=== PATIENT | female | born 1990 | race Caucasian/White ===

== ENCOUNTER 2023-08-05 12:00 | Outpatient (CLI) | payer OTHER | END 2023-08-05 12:15 | disposition home or self-care (01) | LOC: LAB.N 12:00 | PROVIDERS: ATTEND Physician Assistant Medical | DX: J02.9 Acute pharyngitis, unspecified (principal) | CPT/HCPCS: 87070 ==

== ENCOUNTER 2024-02-11 07:36 | Observation (INO) ==
[2024-02-11 08:29] LABS: BILIRUBIN,URINE NEGATIVE (NEGATIVE); GLUCOSE, URINE (UA) NEGATIVE (NEGATIVE); KETONES,URINE (UA) 40 mg/dL (NEGATIVE); LEUKOCYTE ESTERASE, URINE SMALL (NEGATIVE); NITRITE,URINE NEGATIVE (NEGATIVE); OCCULT BLOOD,URINE TRACE-INTA (NEGATIVE); PROTEIN,URINE NEGATIVE (NEGATIVE); UROBILINOGEN,URINE 0.2 (NORMAL) E.U./dL (NORMAL)
[2024-02-11 08:30] LABS: BASOPHILS # (AUTO) 0.1 10^3/uL (0.0-0.1); BASOPHILS % (AUTO) 0.5 %; EOSINOPHILS # (AUTO) 0.2 10^3/uL (0.0-0.7); EOSINOPHILS % (AUTO) 1.5 %; HCT - HEMATOCRIT 40.4 % (37.0-47.0); HGB - HEMOGLOBIN 13.5 g/dL (12.0-16.0); LYMPHOCYTES # (AUTO) 2.4 10^3/uL (1.5-3.5); LYMPHOCYTES % (AUTO) 17.9 %; MEAN CORPUSCULAR HEMOGLOBIN 30.1 pg (27.0-31.0); MEAN CORPUSCULAR HGB CONC 33.4 g/dL (32.0-36.0); MEAN PLATELET VOLUME 10.3 fL (7.9-10.8); MONOCYTES % (AUTO) 7.2 %; NEUTROPHILS # (AUTO) 9.7 10^3/uL (1.5-6.6); NEUTROPHILS % (AUTO) 72.7 %; PLT - PLATELET COUNT 354 10^3/uL (130-450); RED BLOOD COUNT 4.49 10^6/uL (4.20-5.40); RED CELL DISTRIBUTION WIDTH 12.5 % (12.0-15.0); WHITE BLOOD COUNT 13.3 x10^3/uL (4.8-10.8)
[2024-02-11 08:34] LABS: CLARITY,URINE HAZY (CLEAR); HCG UR QUAL NEGATIVE
--- NOTE | 2024-02-11 08:36 | ED Physician Documentation ---
History of Present Illness Stated complaint Stated Complaint: ABD PX, BACK PX Chief complaint Chief Complaint: Abd Pain History obtained from History obtained from: Patient History of Present Illness Pain level max: 8 Pain level now: 8 Additonal information Additional information: Patient is a 33-year-old female who presents to the emergency department with right upper quadrant/epigastric pain ongoing x 2 days. Nothing makes it better or worse. Has not had similar symptoms previously. No fevers. No chills. No cough or congestion. Denies any possibility of . No diarrhea or constipation. Review of Systems Constitutional Denies: Fever or Chills Ears, nose, mouth, and throat Denies: Neck pain Genitourinary Denies: Painful urination, Urinary frequency or Urinary urgency Musculoskeletal Denies: Back pain or Neck pain Psychiatric Reports: Anxiety Meds/Allgy Home Medications Ambulatory Orders Medication Instructions Recorded Confirmed cetirizine 10 mg tablet 10 mg PO QDAY PRN 01/24/24 01/24/24 fluticasone propionate 50 2 spray intranasal QDAY 01/24/24 01/24/24 mcg/actuation nasal spray,suspension loratadine 10 mg tablet 10 mg PO QDAY 01/24/24 01/24/24 omeprazole 20 mg capsule,delayed 20 mg PO QDAY 01/24/24 01/24/24 release escitalopram oxalate 10 mg tablet 20 mg (2 x 10 mg) PO QDAY 90 days 01/25/24 01/25/24 #180 tabs Allergies Allergies Allergy/AdvReac Type Severity Reaction Status Date / Time No Known Drug Allergies Allergy Unverified 01/24/24 10:24 [facility] Medical History Medical History (Updated 02/11/24 @ 10:15 by Anderson Duff MD) Generalized anxiety disorder Chronic eczema tx with topicals, derm [facility] in [place] Depression GERD (gastroesophageal reflux disease) Allergic rhinitis Surgical History Surgical History History of colposcopy x3 , noncancerous Hx of wisdom tooth extraction Family History Family History (Updated 01/25/24 @ 09:01 by Kalani Anne, RN, BSN) Paternal grandfather CVA (cerebral vascular accident) Heart disease Maternal grandmother Cancer Social History Social History Smoking Status: Never smoker Relationship: Do you feel safe in your home environment?: Yes Suffered physical, verbal, emotional, or financial abuse?: No ETOH Use: None Substance Use: denies use Exam Constitutional normal general appearance and no apparent distress HENMT oropharynx normal moist mucous membranes Eyes PERRL Neck/C-Spine visual inspection normal Respiratory breath sounds equal bilaterally, normal respiratory effort and clear to auscultation bilaterally Cardiovascular normal heart rate noted and regular rhythm noted Gastrointestinal abdomen normal to inspection, abdomen soft to palpation and nondistended Tender to palpation right upper quadrant. Positive Macedo sign. Genitourinary no CVA tenderness Extremities no deformity no edema Neurology speech normal Psychiatry mental status grossly normal and oriented x3 Skin skin color normal Results Vitals Vitals: Vital Signs - 24 hr 02/11/24 07:44 02/11/24 08:47 02/11/24 09:20 Temperature 36.7 C Pulse Rate 125 H Respiratory Rate 16 Blood Pressure 138/89 H O2 Saturation 98 Pain Intensity 7 6 3 02/11/24 11:48 Temperature Pulse Rate 83 Respiratory Rate Blood Pressure 121/72 O2 Saturation Pain Intensity 4 Labs Labs: Laboratory Tests 02/11/24 08:17 WBC 13.3 H RBC 4.49 Hgb 13.5 Hct 40.4 MCV 90.0 MCH 30.1 MCHC 33.4 RDW 12.5 Plt Count 354 MPV 10.3 Neut # (Auto) 9.7 H Lymph # (Auto) 2.4 Harris # (Auto) 1.0 Eos # (Auto) 0.2 Baso # (Auto) 0.1 Absolute Nucleated RBC 0.00 Nucleated RBC % 0.0 Sodium 136 Potassium 3.6 Chloride 101 Carbon Dioxide 25 Anion Gap 10.0 BUN 7 Creatinine 0.7 Estimated GFR (MDRD) 96 Glucose 104 Calcium 9.4 Total Bilirubin 0.7 AST 17 ALT 18 Alkaline Phosphatase 73 Total Protein 7.5 Albumin 4.2 Globulin 3.3 Albumin/Globulin Ratio 1.3 Lipase 16 Urine Color LIGHT YELLOW Urine Clarity HAZY Urine pH 6.0 Ur Specific [place] 1.010 Urine Protein NEGATIVE Urine Glucose (UA) NEGATIVE Urine Ketones 40 H Urine Occult Blood TRACE-INTA Urine Nitrite NEGATIVE Urine Bilirubin NEGATIVE Urine Urobilinogen 0.2 (NORMAL) Ur Leukocyte Esterase SMALL H Urine RBC 0-5 Urine WBC 6-10 H Ur Squamous Epith Cells MOD Squamous H Urine Bacteria Few Ur Microscopic Review INDICATED Urine Culture Comments NOT INDICATED Urine HCG, Qual NEGATIVE Rads (name of study) Abdominal ultrasound: Relevant Findings:: Final report received PD Medical Decision Making ED course Complexity details: reviewed results, considered differential, d/w patient and d/w economics consultant ED course: 33-year-old female with right upper quadrant abdominal pain. Has a gallstone stuck in the gallbladder neck. Pain improved with Toradol, nausea improved with Zofran. Started on Zosyn. Ultrasound consistent with acute cholecystitis. Elevated white blood cell count as well. Discussed the case with Dr. Gottlieb who will plan on taking the patient to the OR for cholecystectomy. Patient was given Ativan for anxiety. This document was made in part using voice recognition software. While efforts are made to proofread this document, sound alike and grammatical errors may occur. Discharge Plan Discharge Patient Disposition: ED Transfer to [facility] Condition: Stable Clinical Impression: Acute cholecystitis
[2024-02-11 08:43] LABS: ALBUMIN 4.2 g/dL (3.2-5.5); ALBUMIN/GLOBULIN RATIO 1.3 (1.0-2.2); BILIRUBIN,TOTAL 0.7 mg/dL (0.2-1.0); CALCIUM 9.4 mg/dL (8.5-10.3); CREATININE 0.7 mg/dL (0.6-1.3); POTASSIUM 3.6 mmol/L (3.5-4.5); TOTAL PROTEIN 7.5 g/dL (6.4-8.9)
[2024-02-11] MEDS: KETOROLAC 30 MG/ML VIAL IVP STA (08:47)
[2024-02-11] MEDS: ONDANSETRON 4 MG/2 ML VIAL IVP STA (08:47)
[2024-02-11 08:51] LABS: BACTERIA,URINE Few /HPF (None Seen); RBC,URINE 0-5 /HPF (0-5); SQUAMOUS EPITHELIAL CELL,UR MOD Squamous (<= Few)
--- NOTE | 2024-02-11 09:48 | Ultrasound Report ---
PROCEDURE: US Abdomen Limited INDICATIONS: RUQ pain TECHNIQUE: Real-time focused scanning was performed of the abdomen, with image documentation. COMPARISONS: None. FINDINGS: Liver: Liver is normal in size and homogeneous in echotexture. Gallbladder: Cholelithiasis with gallbladder wall thickening. Negative sonographic Macedo's sign. Gal lbladder hydrops. Biliary ducts: Intrahepatic bile ducts are non-dilated. Extrahepatic bile duct caliber measures 3 m m. Normal is 6-7 mm or less in diameter, or 10 mm or less post-cholecystectomy. Pancreas: Not well visualized due to overlying bowel gas. Right kidney: Normal in size and echotexture. Right kidney measures 9.8 cm long. No hydronephrosis o r nephrolithiasis. No solid masses. No complex renal cystic lesions which require follow-up. IVC: Intrahepatic inferior vena cava is patent. Miscellaneous: No free abdominal fluid. IMPRESSION: Nonmobile stone at the gallbladder neck, with wall thickening and color hydrops. Findings likely eveline mary early acute cholecystitis. Correlate with right upper quadrant pain and consider surgical consul tation. Reviewed by: Ken Yee MD on 02/11/2024 9:47 AM [facility] Approved by: Ken Yee MD on 02/11/2024 9:47 AM PST Station ID: [id number]
[2024-02-11] MEDS: SODIUM CHLORIDE 0.9% 1,000 ML IV STA (10:31)
[2024-02-11] MEDS: PIPERACILLIN/TAZOBACTAM 3.375 GM in SODIUM CHLORIDE 0.9% MINIBAG 100 ML IV STA (10:35)
[2024-02-11] MEDS: LORazepam 2 MG/ML VIAL IVP STA ×2 (10:53→12:28)
--- NOTE | 2024-02-11 12:03 | HISTORY & PHYSICAL EXAMINATION ---
Chief Complaint Chief Complaint Chief Complaint: Abdominal pain History of Present Illness Admitted From Admitted From:: ED History Obtained From History obtained from: Patient Exam Limitations: None History of Present Illness HPI Comment/Other: Velma is a 33 year old female who developed mid-epigastrc abdominal pain several days ago. The pain was intermittent over the next 36 hours but after eating a meal the pain was much worsr, sharp and with mild radiation to the back and right flank. She became anorexic. She denies nausea or vomiting. She came to the ED and was found to have a distended gallbladder with gallstones and leukocytosis. Her LFTs were normal. Velma denies previous episodes of similar discomfort. Meds/Allgy Home Medications Ambulatory Orders Medication Instructions Recorded Confirmed cetirizine 10 mg tablet 10 mg PO QDAY PRN 01/24/24 01/24/24 fluticasone propionate 50 2 spray intranasal QDAY 01/24/24 01/24/24 mcg/actuation nasal spray,suspension loratadine 10 mg tablet 10 mg PO QDAY 01/24/24 01/24/24 omeprazole 20 mg capsule,delayed 20 mg PO QDAY 01/24/24 01/24/24 release escitalopram oxalate 10 mg tablet 20 mg (2 x 10 mg) PO QDAY 90 days 01/25/24 01/25/24 #180 tabs Allergies Allergies Allergy/AdvReac Type Severity Reaction Status Date / Time No Known Drug Allergies Allergy Unverified 01/24/24 10:24 [facility] Medical History Medical History (Updated 02/11/24 @ 10:15 by Anderson Duff MD) Generalized anxiety disorder Chronic eczema tx with topicals, derm [facility] in [place] Depression GERD (gastroesophageal reflux disease) Allergic rhinitis Surgical History Surgical History History of colposcopy x3 , noncancerous Hx of wisdom tooth extraction Family History Family History (Updated 01/25/24 @ 09:01 by Kalani Anne RN, BSN) Paternal grandfather CVA (cerebral vascular accident) Heart disease Maternal grandmother Cancer Social History Social History Smoking Status: Never smoker Relationship: Do you feel safe in your home environment?: Yes Suffered physical, verbal, emotional, or financial abuse?: No ETOH Use: None Substance Use: denies use POLST POLST Status: Full Code Review of Systems Gastrointestinal Reports: Abdominal pain and Poor appetite Prior Level of Functionality: Independent Exam Constitutional normal general appearance and no apparent distress HENMT normocephalic, head/scalp atraumatic, hearing grossly normal bilaterally and oral mucous membranes normal Eyes PERRL, EOMs intact bilaterally, conjunctivae normal and no scleral icterus Neck/C-Spine visual inspection normal and trachea midline Lymph no lymphadenopathy noted Chest inspection of chest normal Respiratory breath sounds equal bilaterally, normal respiratory effort and clear to auscultation bilaterally Cardiovascular normal heart rate noted, regular rhythm noted and no murmur Gastrointestinal abdomen normal to inspection, abdomen soft to palpation, nontender to palpation, nontender to percussion, nondistended and normoactive bowel sounds Genitourinary no CVA tenderness Extremities normal to inspection and normal to palpation Neurology no movement abnormality noted and no focal motor deficit noted Psychiatry mental status grossly normal, oriented x3, thought process normal, cooperative and affect normal Skin skin color normal and no jaundice Conclusion/Plan Problem List (1) Acute cholecystitis: Plan: 1) Laparoscopic cholecystectomy, possible open cholecystectomy under GETA Lab Results 02/11/24 08:17 02/11/24 08:17 Other Lab Results: LFT's normal Diagnostic Imaging Results Diagnostic Imaging Results Comments: US RUQ -> cholelithiasis with a distended gallbladded Other Other Results/Comments: Consent: Velma has been counseled for the procedure (laparoscopic cholecystectomy, possible open cholecystectomy under GETA, it's indications, risks, benefits and expected outcome as well as alternative therapies. We specifically discussed risks associated with anesthesia, bleeding, infection, injury to surrounding structures which may require additional surgery, and the possible need for conversion to an open procedure. We also discussed the possible need for a blood transfusion with its risks and benefits. Velma understands, agrees, and consents to the proposed operative strategy and requests that we proceed with the procedure as outlined in our discussion. Marin Gottlieb MD, [facility] General Surgery Service
--- NOTE | 2024-02-11 16:51 | PROVIDER PROGRESS NOTE ---
Progress Note Progress Note Progress Note: General Surgery Progress Note Due to delays in the OR, I have recommended that this case be postponed until tomorrow morning. The patient is clinically stable and comfortable with this decision. The patient will continue to receive IV antibiotics and clear liquids orally until midnight. VTEP has been initiated. Anxiety will be managed with prn Ativan. Marin Gottlieb MD, [facility] General Surgery Service
[2024-02-11] MEDS ORDERED: ceFAZolin (2G) 2 GM in SODIUM CHLORIDE 0.9% MINIBAG 100 ML IV ONE (16:56)
[2024-02-11] MEDS: PIPERACILLIN/TAZOBACTAM 3.375 GM in SODIUM CHLORIDE 0.9% MINIBAG 100 ML IV SCH (17:21)
[2024-02-11] MEDS: ACETAMINOPHEN 325 MG TABLET PO PRN (17:28)
[2024-02-11] MEDS: SODIUM CHLORIDE FLUSH 0.9% 10 ML SYRINGE IVP SCH (17:42)
[2024-02-11] MEDS: LACTATED RINGERS 1,000 ML IV SCH (19:57)
[2024-02-11] MEDS: HEPARIN 5,000 UNIT/ML VIAL SUBQ SCH (20:31)
[2024-02-11] MEDS: LORazepam 2 MG/ML VIAL IVP PRN (20:39)
--- NOTE | 2024-02-11 23:12 | ANESTHESIA PROCEDURE NOTE ---
Pre-Anesthesia VS, & Labs Diagnosis Surgical Diagnosis:: acute cholecystitis Procedure Procedure: Lap Tueyt Vitals Vital Signs: Temp Pulse Resp BP Pulse Ox 36.7 C 99 H 20 112/65 98 02/11/24 21:21 02/11/24 21:21 02/11/24 21:21 02/11/24 21:21 02/11/24 21:21 Height (in): 5 ft 10 in Weight (kg): 113 kg Body Mass Index: 35.7 BMI Classification: Obese NPO NPO: >8 hours Is Patient ?: No Lab Results Current Lab Results: Laboratory Tests 02/11/24 08:17: WBC 13.3 H, RBC 4.49, Hgb 13.5, Hct 40.4, MCV 90.0, MCH 30.1, MCHC 33.4, RDW 12.5, Plt Count 354, MPV 10.3, Neut # (Auto) 9.7 H, Lymph # (Auto) 2.4, [place] # (Auto) 1.0, Eos # (Auto) 0.2, Baso # (Auto) 0.1, Absolute Nucleated RBC 0.00, Nucleated RBC % 0.0, Sodium 136, Potassium 3.6, Chloride 101, Carbon Dioxide 25, Anion Gap 10.0, BUN 7, Creatinine 0.7, Estimated GFR (MDRD) 96, Glucose 104, Calcium 9.4, Total Bilirubin 0.7, AST 17, ALT 18, Alkaline Phosphatase 73, Total Protein 7.5, Albumin 4.2, Globulin 3.3, Albumin/Globulin Ratio 1.3, Lipase 16 Lab results reviewed: Yes 02/11/24 08:17 02/11/24 08:17 Meds/Allgy Home Medications Ambulatory Orders Medication Instructions Recorded Confirmed cetirizine 10 mg tablet 10 mg PO QDAY PRN 01/24/24 01/24/24 fluticasone propionate 50 2 spray intranasal QDAY 01/24/24 01/24/24 mcg/actuation nasal spray,suspension loratadine 10 mg tablet 10 mg PO QDAY 01/24/24 01/24/24 omeprazole 20 mg capsule,delayed 20 mg PO QDAY 01/24/24 01/24/24 release escitalopram oxalate 10 mg tablet 20 mg (2 x 10 mg) PO QDAY 90 days 01/25/24 01/25/24 #180 tabs Allergies Allergies Allergy/AdvReac Type Severity Reaction Status Date / Time No Known Drug Allergies Allergy Unverified 01/24/24 10:24 [facility] Medical History Medical History Generalized anxiety disorder Chronic eczema tx with topicals, derm [facility] in [place] Depression GERD (gastroesophageal reflux disease) Allergic rhinitis Surgical History Surgical History History of colposcopy x3 , noncancerous Hx of wisdom tooth extraction Family History Family History (Updated 01/25/24 @ 09:01 by Kalani Anne, RN, BSN) Paternal grandfather CVA (cerebral vascular accident) Heart disease Maternal grandmother Cancer Social History Social History Smoking Status: Never smoker Relationship: Level: Independent Do you feel safe in your home environment?: Yes Suffered physical, verbal, emotional, or financial abuse?: No ETOH Use: None Substance Use: denies use POLST POLST Status: Full Code Anesthesia Exam (Expanded) Exam General: Alert, Oriented x3 and Cooperative Dental: WNL Mouth Openin Fingerbreadth Neck Mobility: Normal Mallampati classification: III Thyromental Distance: 4-6 cm Mental/Cognitive Status: Alert/Oriented X3 and Normal for patient Plan Problem List (1) Acute cholecystitis: Plan: 1) Laparoscopic cholecystectomy, possible open cholecystectomy under GETA Plan Anesthesia Type: General Consent for Procedure(s) Verified and Reviewed: Yes Code Status: Attempt Resuscitation ASA Classification ASA classification: 2-Mild systemic disease Is this case an emergency?: No
[2024-02-12] MEDS ORDERED: BUPIVACAINE 0.5% PF 10 ML VIAL ONE (07:01)
[2024-02-12] MEDS ORDERED: LIDOCAINE 1%-EPI 1:100000 20 ML MDV ONE (07:01)
[2024-02-12] MEDS ORDERED: iohexoL-240 10 ML VIAL IVP ONE (07:01)
[2024-02-12] MEDS ORDERED: ATROPINE ABBOJECT 1 MG/10 ML SYRINGE IVP PRN (07:25)
[2024-02-12] MEDS ORDERED: METOCLOPRAMIDE 10 MG/2 ML VIAL IVP PRN (07:25)
[2024-02-12] MEDS ORDERED: MORPHINE 2 MG/ML CARPUJECT IVP PRN (07:25)
[2024-02-12] MEDS ORDERED: ePHEDrine 50 MG/ML VIAL IVP PRN (07:25)
[2024-02-12] MEDS ORDERED: fentaNYL 100 MCG/2 ML VIAL IVP PRN (07:25)
[2024-02-12] MEDS ORDERED: NALOXONE 0.4 MG/ML VIAL IVP PRN (07:25)
[2024-02-12] MEDS ORDERED: KETOROLAC 30 MG/ML VIAL ONE (07:30)
[2024-02-12] MEDS ORDERED: PROPOFOL 200 MG/20 ML VIAL IVP ONE ×2 (07:30→10:48)
[2024-02-12] MEDS ORDERED: DEXAMETHASONE 4 MG/ML VIAL ONE (07:30)
[2024-02-12] MEDS ORDERED: ROCURONIUM 50 MG/5 ML VIAL ONE ×2 (07:30→09:40)
[2024-02-12] MEDS ORDERED: LIDOCAINE-PF 2% 10 ML AMP SUBQ ONE (07:30)
[2024-02-12] MEDS ORDERED: SUGAMMADEX 200 MG/2 ML VIAL IVP ONE (07:31)
[2024-02-12] MEDS ORDERED: MIDAZOLAM 2 MG/2 ML VIAL ONE (07:31)
[2024-02-12] MEDS ORDERED: fentaNYL 100 MCG/2 ML VIAL ONE ×2 (09:22→10:24)
[2024-02-12] MEDS ORDERED: ACETAMINOPHEN 1,000 MG/100 ML 1,000 MG/100 ML BAG IV ONE (11:12)
[2024-02-12] MEDS: ACETAMINOPHEN 1,000 MG/100 ML 1,000 MG/100 ML BAG IV ONE (11:20)
[2024-02-12] MEDS ORDERED: HYDROmorphone 0.5 MG/0.5 ML SYRINGE ONE ×2 (11:20→11:51)
[2024-02-12] MEDS: HYDROmorphone 0.5 MG/0.5 ML SYRINGE IVP PRN ×2 (11:22→11:52)
[2024-02-12] MEDS: LACTATED RINGERS 1,000 ML IV SCH (11:38)
--- NOTE | 2024-02-12 11:42 | OPERATIVE REPORT ---
Operative Report General Admit Date: 02/11/24 Procedure Data: Operation Date: 02/12/24 08:00 Proposed Procedures p Laparoscopic Cholecystectomy, POSSIBLE OPEN , SURGICALLY REMOVE DISEASED GALLBLADDER(Not Applicable) - Marin Gottlieb MD Actual Procedures p Laparoscopic Cholecystectomy(Not Applicable) - Marin Gottlieb MD Pre-Op Diagnosis: ACUTE CHOLECYSTITIS Anesthesia Type General Case Staff Anesthesia Provider: Marita Vasquez Case Times Into Recovery: 02/12/24 11:03 Procedure Start: 02/12/24 09:07 Procedure End: 02/12/24 10:55 Time out: 02/12/24 09:06 Pre-Op Diagnosis: Acute cholecystitis Post Op Diagnosis: Acute cholecystitis Procedure Note Drain/Tube Type: Mark Anthony drain Other Other Information/Narrative: PROCEDURE DATE: 02/12/2024 PREOPERATIVE DIAGNOSIS: Velma is a 33 year old female who has clinical, image, and laboratory findings consistent with acute cholecystitis. Velma is being taken to the operating room for laparoscopic cholecystectomy, possible open cholecystectomy. POSTOPERATIVE DIAGNOSIS: Acute cholecystitis NAME OF PROCEDURE: Laparoscopic cholecystectomy SURGEON: Marin Gottlieb MD, FACS CARDIOVASCULAR TECHNOLOGIST SURGEON: None ANESTHESIA: General endotracheal. ESTIMATED BLOOD LOSS: 40 mL. DRAINS: 19 F Mark Anthony channel drain into sub-hepatic space SPECIMEN: Gallbladder, stone COMPLICATIONS Bile leakage from rent in gallbladder FINDINGS: Distended, markedly inflamed gallbladder with significant wall thickening in the body and fundus of the organ. The neck of the gallbladder wall was thin and friable; One single stone (1.5 cm diameter); small abscesses between the wall of the gallbladder and the liver; intra-hepatic gallbladder DESCRIPTION OF OPERATION FOLLOWS: After consent for the procedure was obtained, the patient was brought to the operating room where in the supine position, general endotracheal anesthesia was administered. A surgical time-out was performed indicating the patient and the procedure to be performed. The abdomen was prepped with alcohol-free chloroprep and draped in a sterile fashion. Pneumoperitoneum was achieved through a subumbilical incision using a Tee cannula and an open technique. Under direct vision, a 10 mm non-cutting laparoscopic port was placed in the sub-xiphoid region and two 5 mm noncutting ports were placed in the right upper quadrant; one in the mid-clavicular line and one in the anterior axillary line. Each of the port sites were infiltrated with 1% Lidocaine with epinephrine in a 50/50 mix with 1/4% Marcaine mixture prior making the incisions. The patient was placed in the steep reverse Trendelenburg position and rolled to the left. Inspection of the right upper quadrant revealed the above noted findings. The gallbladder was distended and required decompression with an 18 G spinal needle to obtain purchase with an endograsper. Even with the decompression, the wall of the gallbladder was thick and friable and was difficult to obtain a durable purchase during the procedure using any of the available endograsping devices. This led to multiple grasping attempts which eventually caused a rent in the thin walled neck of the gallbladder later in the procedure. A single 1.5 cm diameter spherical gallstone along with thick bile exuded from the structure. The bile was aspirated and the large stone retrieved and removed with an endocatch device. An endograsper was used to close the rent during the remainder of the procedure. The gallbladder was grasped on the fundus and retracted superiorly and anteriorly. Adhesions between the gallbladder and omentum were gently teased off the anterior wall of the gallbladder and then the neck of the gallbladder was identified. The neck was grasped and retracted laterally. The cystic duct was identified as it coursed from the gallbladder toward the common duct. The cystic artery was similarly identified. The critical view of safetywas achieved by dissecting the soft tissue behind the cystic duct and the cystic artery. Both cystic duct (3 clips) and cystic artery (2 clips) were clipped proximally and distally and transected. The gallbladder was then removed from the liver bed using electrocautery and brought out through the subxiphoid port using an endo-catch device. Multiple small abscess pockets were identified and drained in the tissue place between the liver and the wall of the gallbladder. This portion of the procedure was tedious due to the intra-hepatic nature of the gallbladder and the problem with achieving durable endograsper purchase but was eventually successful. Reinspection of the right upper quadrant revealed no evidence of bleeding or bile leakage from the previous dissection site. The right upper quadrant was irrigated with warm sterile saline. The irrigant was aspirated. A 19 F Mark Anthony drain was placed into the sub-hepatic space, brought out through the lateral port site, and secured to the skin with a 3-0 silk suture. A search was made for sponges, packs, instruments, and needles. None were found. The sponge, pack, instrument, and needle counts were relayed to me as being correct. The sub-xiphoid port site was closed with a 2-0 Vicryl under direct vision using an endo-close device. The pneumoperitoneum then was released. There was no evidence of bleeding from the laparoscopic port sleeve sites upon release of the pneumoperitoneum. The subumbilical incision was closed with 2-0 Vicryl for the linea alba. The skin of each of the port sites was closed with interrupted 4-0 Monocryl in a subcuticular fashion with Steri-Strips to reinforce the epidermis. Dressings were placed. The patient tolerated the procedure well and was brought to the recovery room with stable vital signs.
[2024-02-12] MEDS ORDERED: ONDANSETRON 4 MG/2 ML VIAL ONE (11:46)
[2024-02-12] MEDS: ONDANSETRON 4 MG/2 ML VIAL IVP PRN (11:46)
--- NOTE | 2024-02-12 12:20 | ANESTHESIA POST OP EVALUATION ---
Anesthesia Post Eval Post Anesthesia Eval Vitals: Last Vital Signs Temp 36.7 C 02/12/24 11:50 Pulse 105 H 02/12/24 11:50 Resp 14 02/12/24 11:50 BP 119/78 02/12/24 11:50 Pulse Ox 97 02/12/24 11:50 CV Function Including HR & BP: Stable Pain Control: Satisfactory Nausea & Vomiting: Negative Mental Status: Baseline Respiratory Status: Airway Patent Hydration Status: Satisfactory Anesthesia Complications: None
--- NOTE | 2024-02-12 12:27 | PHARMACY PROGRESS NOTE ---
Best Possible Medication History Admit Date and Time: 02/11/24 [id number] Home Medications Medication Instructions Recorded Confirmed Type cetirizine 10 mg tablet 10 mg PO QDAY PRN allergy symptoms 01/24/24 02/12/24 History fluticasone propionate 50 2 spray intranasal QDAY 01/24/24 02/12/24 History mcg/actuation nasal spray,suspension omeprazole 20 mg capsule,delayed 20 mg PO QDAY 01/24/24 02/12/24 History release escitalopram oxalate 10 mg tablet 20 mg (2 x 10 mg) PO QDAY 90 days 01/25/2409/28 Rx #180 tabs Processed by: Pharmacy [facility] Statement: As the person ultimately responsible for medication therapy, providers are able to order a medication from an existing home medication list in [facility] via the "Reconcile Routine" prior to Confirmation of that medication by direct support specialist. Such practice is discouraged except when the physician, in their clinical judgment, deems that a medical need exists for a medication without regard to previous use.
[2024-02-12] MEDS ORDERED: CETIRIZINE 10 MG TABLET PO PRN (14:16)
[2024-02-12] MEDS: ACETAMINOPHEN 325 MG TABLET PO SCH ×2 (15:08→18:51)
[2024-02-12] MEDS: ESCITALOPRAM 10 MG TABLET PO SCH (15:09)
[2024-02-12] MEDS: FLUTICASONE NASAL SPRAY NAS SCH (15:09)
[2024-02-12] MEDS: LORATADINE 10 MG TABLET PO SCH (15:10)
[2024-02-12] MEDS: PANTOPRAZOLE 40 MG TABLET PO SCH (15:11)
[2024-02-12] MEDS: KETOROLAC 30 MG/ML VIAL IVP SCH (15:19)
--- NOTE | 2024-02-12 17:51 | PROVIDER PROGRESS NOTE ---
Progress Note Progress Note Progress Note: General Surgery Progress Note S: Mild port site discomfort. Only using NSAID and Tylenol. Dilaudid doesn't seem to help. Tolerating a clear liquid diet; Ambulatory O: VSS, afeb; Abdomen soft; Port sites clean and dry; GEOVANNA 20-30 blood tinged serous fluid - no visible bile A: Satisfactory initial post-op course P: Continue IV antibiotics; Oxycodone has been ordered. Marin Gottlieb MD, FACS General Surgery Service
[2024-02-12] MEDS: oxyCODONE 5 MG TABLET PO PRN (18:19)
[2024-02-13] MEDS: PIPERACILLIN/TAZOBACTAM 3.375 GM in SODIUM CHLORIDE 0.9% MINIBAG 100 ML IV SCH (00:15)
[2024-02-13] MEDS: SODIUM CHLORIDE FLUSH 0.9% 10 ML SYRINGE IVP PRN (04:48)
[2024-02-13] MEDS: ONDANSETRON 4 MG/2 ML VIAL IVP PRN (04:48)
[2024-02-13 06:23] LABS: BASOPHILS % (AUTO) 0.3 %; EOSINOPHILS % (AUTO) 0.4 %; HCT - HEMATOCRIT 36.5 % (37.0-47.0); HGB - HEMOGLOBIN 11.4 g/dL (12.0-16.0); LYMPHOCYTES # (AUTO) 2.5 10^3/uL (1.5-3.5); LYMPHOCYTES % (AUTO) 23.4 %; MEAN CORPUSCULAR HEMOGLOBIN 29.2 pg (27.0-31.0); MEAN CORPUSCULAR HGB CONC 31.2 g/dL (32.0-36.0); MEAN CORPUSCULAR VOLUME 93.6 fL (81.0-99.0); MEAN PLATELET VOLUME 9.8 fL (7.9-10.8); MONOCYTES # (AUTO) 0.8 10^3/uL (0.0-1.0); MONOCYTES % (AUTO) 7.5 %; NEUTROPHILS # (AUTO) 7.3 10^3/uL (1.5-6.6); NEUTROPHILS % (AUTO) 68.2 %; PLT - PLATELET COUNT 327 10^3/uL (130-450); RED CELL DISTRIBUTION WIDTH 12.5 % (12.0-15.0); WHITE BLOOD COUNT 10.7 x10^3/uL (4.8-10.8)
[2024-02-13 06:41] LABS: ALBUMIN 3.2 g/dL (3.2-5.5); ALBUMIN/GLOBULIN RATIO 1.1 (1.0-2.2); BILIRUBIN,TOTAL 0.6 mg/dL (0.2-1.0); CALCIUM 8.2 mg/dL (8.5-10.3); CREATININE 0.7 mg/dL (0.6-1.3); POTASSIUM 3.7 mmol/L (3.5-4.5); TOTAL PROTEIN 6.2 g/dL (6.4-8.9)
--- NOTE | 2024-02-13 08:25 | PROVIDER PROGRESS NOTE ---
Progress Note Progress Note Progress Note: General Surgery Progress Note Hospital Day # 3 - Acute cholecystitis POD # 1, Laparoscopic cholecystectomy Code Status: ull ASSESSMENT: 1) Progressing well. PLAN: 1) Advance diet 2) Increase activity 3) IV to SL 4) Switch from IV Ketorolac to oral Ibuprofen 5) Switch from IV Zosyn to oral Augmentin 6) Consider GEOVANNA drain removal this afternoon 7) Consider discharge to home this afternoon if she continues to improve <><><><><> PERTINENT INTERVAL ISSUES: None S: Ambulatory, tolerating a diet, passing flatus; Still with port site discomfort and anxiety OBJECTIVE: I/O: 3,625/3,585 VS: BP 133/84; P 70; RR 16; T 36.6 EXAMINATION: MENTAL STATUS: AAO; Comfortable EYES: Pupils equal, round and reactive to light, sclera anicteric, EARS, NOSE, MOUTH, THROAT: Normal hearing, Oral mucous membranes moist and without lesions; NECK: No crepitus, lymphadenopathy, or thyromegaly LUNGS: Clear to auscultation without wheezing; No use of accessory muscles to breathe CARDIOVASCULAR: Heart-NSR without murmurs; ABD: Soft, non-tender, Port sites clean and dry; Mark Anthony drain serosanguinous - 40 ml; + BS EXTREMITIES: No clubbing, cyanosis, infections SKIN: Anicteric; No rashes, lesions, ulcerations LABS: H&H 11.4/36.5; WBC 10.7; Plt 327K; Na 137; K 3.7; Cr 0.7; Glu 79; T Armando 0.6; LFT's normal CULTURES: N/A IMAGING: None today ANTIMICROBIALS: Zosyn PAIN CONTROL: Dilaudid IV prn, Oxycodone PO prn, Ketorolac IV, Acetaminophen VTEP: Chemical: Heparin, 5,000 units SQ Q 12 hrs Mechanical: SCD Marin Gottlieb MD, FACS General Surgery Service
[2024-02-13] MEDS: AMOX/CLAV 875 MG/125 MG TABLET PO SCH (09:35)
[2024-02-13] MEDS: SENNA 8.6 MG TABLET PO SCH (12:03)
[2024-02-13] MEDS: IBUPROFEN 600 MG TABLET PO SCH (14:28)
--- NOTE | 2024-02-13 15:49 | PROVIDER PROGRESS NOTE ---
Progress Note Progress Note Progress Note: General Surgery Progress Note Velma has had an uneventful afternoon. She is tolerating a general diet, ambulatory, passing flatus, and her pain is under control with oral medication. Her port sites are clean and dry. the Mark Anthony drain is pulling very little serosanguinous fluid and is removed today at the bedside. The plan is to discharge her to home this afternoon with follow-up in the surgery clinic in 7-10 days. Marin Gottlieb MD, [facility] General Surgery Service
[2024-02-13 16:00] VITALS: BP 120/71; TEMP 97.3; O2SAT 95
[2024-02-13] MEDS ORDERED: NALOXONE 0.4 MG/ML VIAL IVP PRN (16:08)
[2024-02-13] MEDS ORDERED: MORPHINE 2 MG/ML CARPUJECT IVP PRN (16:08)
[2024-02-13] MEDS ORDERED: ONDANSETRON 4 MG/2 ML VIAL IVP PRN (16:08)
[2024-02-13] MEDS ORDERED: ATROPINE ABBOJECT 1 MG/10 ML SYRINGE IVP PRN (16:08)
[2024-02-13] MEDS ORDERED: HYDROmorphone 0.5 MG/0.5 ML SYRINGE IVP PRN (16:08)
[2024-02-13] MEDS ORDERED: fentaNYL 100 MCG/2 ML VIAL IVP PRN (16:08)
[2024-02-13] MEDS ORDERED: LACTATED RINGERS 1,000 ML IV SCH (17:00)
== END 2024-02-13 16:38 | disposition home or self-care (01) ==
LOC: ED 07:36 → MS2 12:40 → SDS 12:40 → MS2 17:05
PROVIDERS: ADMIT Surgery; ATTEND Surgery